=== PATIENT | female | born 1985 | race Hispanic/Latino ===

== ENCOUNTER 2018-12-22 09:12 | Outpatient (CLI) | payer OTHER ==
--- NOTE | 2018-12-22 12:40 | ULT ---
OB ULTRASOUND: 12/22/18 HISTORY: female. Evaluate size, dates and anatomy. TECHNIQUE: Multiplanar briscoe scale and color Doppler images were obtained in a transabdominal ultrasound. FINDINGS: There is a single live intrauterine with heart rate of approximately 155 beats per minute. A survey was performed which is unremarkable. The head, intracranial structures, heart, stomach , kidneys, umbilical cord, umbilical cord insertion, spine, face, and extremities were unremarkable. Average age of the fetus based off today's examination is 21 weeks, 0 days. The following measurement s were taken and dates based off these measurements are as follows: BPD 4.84 cm 20 weeks, 5 days HC 18.33 cm 20 weeks, 5 days AC 15.79 cm 21 weeks, 0 days FL 3.58 cm 21 weeks, 3 days The placenta is posterior and to the maternal right without evidence of placenta previa. Amniotic flu id volume is subjectively within normal limits. The cervix is normal in length. IMPRESSION: Single live intrauterine with estimated age of 21 weeks, 0 days. POS: [facility]
== END 2018-12-22 09:13 | disposition home or self-care (01) ==
LOC: BICULT 09:12
PROVIDERS: ATTEND Obstetrics & Gynecology
DX: O09.92 Supervision of high risk pregnancy, unspecified, second trimester (principal); Z3A.21 21 weeks gestation of pregnancy
CPT/HCPCS: 76805